=== PATIENT | male | born 1940 | race Caucasian/White ===

== ENCOUNTER → 2016-10-06 | Outpatient (CLI) | payer MEDICARE, OTHER ==
--- NOTE | 2016-10-06 12:37 | US ---
EXAM DESCRIPTION: Aorta CLINICAL HISTORY: 76 years Male, follow-up aortic aneurysm COMPARISON: April 10, 2016 TECHNIQUE: Aortic ultrasound FINDINGS: Abdominal aortic aneurysm is present measuring maximum of 5.9 cm in the distal abdominal aorta. Mid abdominal aorta measures maximum 5.5 cm. Proximal abdominal aorta measures a maximum of 2.9 cm. This compares to previous on which study the maximum diameter is reported as 5.0 cm. Current study shows right iliac 2.8 cm and left iliac 1.4 cm. IMPRESSION: 1. Slight increase in size of the abdominal aorta now measuring maximum of 5.9 cm. Per best practice recommendations vascular surgery consultation is recommended. AAA Size: Follow-up Recommendation : 2.6-2.9 cm Every 5 years 3.0-3.4 cm Every 3 years 3.5-3.9 cm Every 1 year 4.0-4.4 cm Every 1 year, vascular consultation recommended 4.5-5.4 cm Every 6 months, vascular consultation recommended >5.5 cm Vascular surgery consultation recommended 1. J Vasc Surg. 2008;50(4 Suppl):S2-49 2. For aortas with maximum diameter of 2.6-2.9 cm meeting the criteria for AAA (>50% of proximal normal segment) Electronically signed by: rUiel Benton MD 10/06/2016 12:37 PM FINAL RAIL [employer]TER
== END | disposition home or self-care (01) ==
LOC: US 10:48
PROVIDERS: ATTEND Internal Medicine Cardiovascular Disease
DX: I71.4 Abdominal aortic aneurysm, without rupture (principal)

== ENCOUNTER → 2016-11-02 | Outpatient (CLI) | payer MEDICARE, OTHER | END | disposition home or self-care (01) | LOC: BFHOS 09:53 | PROVIDERS: ATTEND Family Medicine | DX: I11.0 Hypertensive heart disease with heart failure (principal); I50.9 Heart failure, unspecified; E11.9 Type 2 diabetes mellitus without complications ==

== ENCOUNTER → 2017-06-21 | Outpatient (CLI) | payer MEDICARE, OTHER | END | disposition home or self-care (01) | LOC: BFHH 11:10 | PROVIDERS: ATTEND Internal Medicine Cardiovascular Disease | DX: I10 Essential (primary) hypertension (principal) ==

== ENCOUNTER 2017-11-04 11:26 | Emergency (ER) | payer MEDICARE, OTHER ==
[2017-11-04 11:43] VITALS: TEMP 96.4
[2017-11-04] MEDS ORDERED: SODIUM CHLORIDE 0.9% 250ML 250 ML IVS ONE (11:59)
--- NOTE | 2017-11-04 12:04 | ED.PDOC ---
History of Present Illness - General Chief Complaint: Respiratory Problem Stated Complaint: decreased sats,fell this morning Time Seen by Provider: 11/04/17 11:52 Source: family Exam Limitations: clinical condition Additional Information: HX OBTAINED FROM . PT CANNOT ANSWER. STATES HE FELL OUT OF HIS RECLINER THIS AM. SHE CALLED EMS AND THEY HELPED GET HIM UP. HE REFUSED TO COME TO THE ER AT THAT TIME BUT INSISTED SO HE WAS BROUGHT IN BY EMS. SHE REPORTS WAXING AND WANING MENTAL STATUS OVER PAST WEEK. - History of Present Illness Timing/Duration: unsure Severity: moderate Improving Factors: nothing Worsening Factors: nothing Associated Symptoms: denies symptoms Allergies/Adverse Reactions: Allergies Iodine Allergy (Unknown, Unverified 05/30/13 16:04) Sulfamethoxazole w/Trimethoprim [From Bactrim] Allergy (Verified 11/04/17 11:44) Home Medications: Ambulatory Orders Alprazolam 0.25 mg PO DAILY PRN 09/06/13 Aspirin [Aspirin 81] 81 mg PO AM 09/06/13 Atorvastatin Calcium 20 mg PO BID 09/06/13 Doxazosin Mesylate 8 mg PO AM 09/06/13 Echinacea 80 mg PO BID 09/06/13 Furosemide 20 mg PO BID 09/06/13 Gabapentin (Phn) [Gralise] 300 mg PO HS 09/06/13 Levothyroxine Sodium [Synthroid] 25 mcg PO AM 09/06/13 Multiple Vitamin [Multivitamins] 1 cap PO AM 09/06/13 Tioga 3 Fatty Acids-Tioga 6 FA [Tioga-3 & Tioga-6 Fish Oi] 1 cap PO BID Potassium Chloride Microencaps [Potassium Chloride Cr] 20 meq PO AM 09/06/13 Nitroglycerin [Nitrostat] 0.4 mg SL .Q5MIN. PRN #0 sub 09/07/13 Albuterol Sulfate 0.083 % IN .Q4HRS PRN 11/04/17 Azithromycin 500 mg PO DAILY 11/04/17 Benzonatate Perles [Tessalon Perles] 1 - 2 mg PO Q8H PRN 11/04/17 Levalbuterol HCl 0.63 mg IN Q6H PRN 11/04/17 Meloxicam 15 mg PO DAILY 11/04/17 Misc Natural Products [Tart Raymond Advanced] 1 cap PO BID 11/04/17 Nitroglycerin [Nitroglycerin Transdermal] 0.4 mg TD DAILY 11/04/17 Prednisone [Deltasone] 20 mg PO BID 11/04/17 Sotalol HCl 120 mg PO BID 11/04/17 Review of Systems - Review of Systems Constitutional: Denies: chills, fever EENTM: States: no symptoms reported Respiratory: States: cough, other - TELEPHONE SERVICE ADVISER Cardiology: Denies: chest pain, palpitations, syncope Gastrointestinal/Abdominal: Denies: diarrhea, nausea, vomiting Genitourinary: States: no symptoms reported Musculoskeletal: Denies: joint pain, neck pain Skin: States: no symptoms reported Neurological: States: weakness - GENERALIZED, NO FOCAL DEFICITS. , other - SOMNOLENCE Endocrine: States: no symptoms reported Hematologic/Lymphatic: States: no symptoms reported Past Medical History (General) - Patient Medical History Hx Seizures: No Hx Stroke: No Hx Asthma: No Hx of COPD: No Hx Cardiac Disorders: Yes - AR x2 Hx Congestive Heart Failure: Yes Hx Pacemaker: Yes Hx Hypertension: Yes Hx Diabetes: Yes Hx MRSA: No Surgical History: pacemaker - Vaccination History Hx Influenza Vaccination: Yes Hx Pneumococcal Vaccination: Yes - Social History Hx Tobacco Use: Yes Hx Alcohol Use: No Hx Substance Use: No Hx Physical Abuse: No Hx Emotional Abuse: No Family Medical History - Family History Father Family History: Unknown Living Status: Unknown Physical Exam - Physical Exam General Appearance: No apparent distress, Other - SOMNOLENT. AROUSES SOMEWHAT TO VERBAL STIMULI IS ABLE TO FOLLOW COMMANDS. Ears, Nose, Throat: hearing grossly normal, normal ENT inspection Neck: non-tender, full range of motion Respiratory: lungs clear, normal breath sounds, other - SATS 86% RA, (HYPOXIC) Cardiovascular/Chest: regular rate, rhythm, no edema Gastrointestinal/Abdominal: normal bowel sounds, non tender, no organomegaly Rectal Exam: normal exam Back Exam: normal inspection Extremity: normal range of motion Neurologic: no motor/sensory deficits, alert, normal mood/affect Skin Exam: normal color Lymphatic: no adenopathy Progress - Progress Progress: 11/04/17 13:39 VSS, NO CHANGE IN MS. 11/04/17 15:10 ABG SHOWS, RESP ACIDOSIS WITH MOD-SEVERE HYPERCAPNEA. 11/04/17 17:31 ABG HAS NOT IMPROVED, HAVE DISCUSSED WITH FAMILY WILL INTUBATE AND TRANSFER. 11/04/17 19:14 INTUBATED, AND CENTRAL LINE PLACED. VSS TRANSFER TO [facility]. FLIGHT CREW HERE. - EKG/XRAY/CT EKG: nonspecific ST T wave Chg - NAIP Comments: AV SEQUENTIAL PACEMAKER, RATE 70, NL AXIS, NL NC INTERVAL XRAY: chest - PHILIPPE LL INFILTRATES, L>R, CXR #2, NO PTX, APPROPRIATELY PLACED ETT. PERFORMED POST CENTRAL LINE ATTEMPT. CT Ordered: Yes - CT HEAD, ALBERT Procedures - Central Line Right Femoral vein Central Line Lumen: triple Anesthesia: local Complications: none Central Line Post Position: sutured, good blood return Progress: IJ L AND R UNSUCCESSFUL COULD NOT THREAD GUIDE WIRE. R FEMORAL VEIN CANNULATED WITH US ASSISTANCE. - Ultrasound Progress: R FEMORAL VEIN VISUALIZED FOR CENTRAL LINE PLACEMENT. CROSS SECTION, HIGH FREQUENCY LINEAR PROBE. INTERP APPROPRIATELY PLACED CENTRAL LINE. - Intubation Time of Intubation: 18:15 - ETOMIDATE FOR SEDATION Intubation Method: orotracheal Tube Size (cm): 8.0 Medications: Succinylcholine Breath Sounds after Intubation: right greater than left Intubation Complications: no complications Post Intubation Xray: Yes - GOOD TUBE PLACEMENT, LLL INFILTRATE - Additional Procedures Additional Procedures: arterial blood draw - R FEMORAL VEIN CANNULATION FOR BLOOD AND BLOOD DRAW. Departure - Departure Clinical Impression: Respiratory acidosis, Altered sensorium Pneumonia Qualifiers: Pneumonia type: due to unspecified organism Laterality: bilateral Lung location : lower lobe of lung Qualified Code(s): J18.9 - Pneumonia, unspecified organism Respiratory failure Qualifiers: Chronicity: acute Respiratory failure complication: hypoxia and hypercapnia Qualified Code(s): J96.01 - Acute respiratory failure with hypoxia; J96.02 - Acute respiratory failure with hypercapnia Hypertension Qualifiers: Hypertension type: essential hypertension Qualified Code(s): I10 - Essential ( primary) hypertension Time of Disposition: 19:27 - ACCEPTED AT [facility] Disposition: Transfer to Hospital Condition: Serious Departure Forms: ED Discharge - Pt. Copy, Patient Portal Self Enrollment Referrals: COBY ARMSTRONG,MANDY Tomlin [Primary Care Provider] - 1-2 Weeks Home Medications: Ambulatory Orders Alprazolam 0.25 mg PO DAILY PRN 09/06/13 Aspirin [Aspirin 81] 81 mg PO AM 09/06/13 Atorvastatin Calcium 20 mg PO BID 09/06/13 Doxazosin Mesylate 8 mg PO AM 09/06/13 Echinacea 80 mg PO BID 09/06/13 Furosemide 20 mg PO BID 09/06/13 Gabapentin (Phn) [Gralise] 300 mg PO HS 09/06/13 Levothyroxine Sodium [Synthroid] 25 mcg PO AM 09/06/13 Multiple Vitamin [Multivitamins] 1 cap PO AM 09/06/13 Tioga 3 Fatty Acids-Tioga 6 FA [Tioga-3 & Tioga-6 Fish Oi] 1 cap PO BID Potassium Chloride Microencaps [Potassium Chloride Cr] 20 meq PO AM 09/06/13 Nitroglycerin [Nitrostat] 0.4 mg SL .Q5MIN. PRN #0 sub 09/07/13 Albuterol Sulfate 0.083 % IN .Q4HRS PRN 11/04/17 Azithromycin 500 mg PO DAILY 11/04/17 Benzonatate Perles [Tessalon Perles] 1 - 2 mg PO Q8H PRN 11/04/17 Levalbuterol HCl 0.63 mg IN Q6H PRN 11/04/17 Meloxicam 15 mg PO DAILY 11/04/17 Misc Natural Products [Tart Raymond Advanced] 1 cap PO BID 11/04/17 Nitroglycerin [Nitroglycerin Transdermal] 0.4 mg TD DAILY 11/04/17 Prednisone [Deltasone] 20 mg PO BID 11/04/17 Sotalol HCl 120 mg PO BID 11/04/17 Critical Care Note - Critical Care Note Total Time (mins): 155 Comments: EVENT: IMPENDING RESP FAILURE, PNEUMONIA FINDINGS, AMS, PH 7.13, PCO2 113, UNRESPONSIVE TO CPAP. LLL INFILTRATE INTERVENTION: INTUBATION, IV ABX, TRANSFER TO [facility] [place]. TIME: DIRECT PT CARE-55 MIN, LAB/XRAY-20 MIN, FAMILY INTERACTION 20 MIN, DOCUMENTATION 40 MIN, CONSULTATION 20 MIN RESP/CARDIOVASC AT RISK. Transfer to Outside Facility - Transfer Information Accepting Provider:: D/W HOSPITALIST AND FIXING CARPENTER Accepting Facility: [facility] Reason for Transfer: ICU
--- NOTE | 2017-11-04 12:28 | RAD ---
Study: Single Frontal View of the Chest. Indication:AMS Comparison: September 07. Impression: Cardiac pacemaker. Cardiomegaly with mild interstitial edema. Patchy moderate consolidation in the left lung base with mild changes at the right lung base concerning for pneumonia. Small left and tiny right pleural effusions. No pneumothorax. Electronically signed by: Isidro Hwang MD 11/04/2017 12:27 PM CDT
--- NOTE | 2017-11-04 12:30 | CT ---
Study: CT of the Head. Indication: AMS Technique: Axial CT images of the head were acquired without intravenous contrast. This exam was performed according to our departmental dose-optimization program, which includes automated exposure control, adjustment of the mA and/or kV according to patient size and/or use of iterative reconstruction technique. Comparison: None. Findings: Examination is moderately motion degraded. No CT evidence of acute ischemia, acute hemorrhage, mass, mass effect, midline shift, or extra-axial fluid collection. Ventricles are normal in configuration without hydrocephalus. Patchy hypoattenuation of the periventricular and subcortical white matter noted. This is nonspecific but most consistent with chronic microvascular ischemic change. Global parenchymal volume loss and intracranial atherosclerosis noted as well. Paranasal sinuses are adequately aerated. Mastoid air cells are adequately aerated. Osseous structures and soft tissues are unremarkable. Impression: 1. Moderately motion degraded examination without gross CT evidence of acute intracranial abnormality. 2. Senescent changes. Electronically signed by: Isidro Hwang MD 11/04/2017 12:28 PM CDT
[2017-11-04] MEDS ORDERED: CHLORHEXIDINE GLUCONATE 4 % 15 ML UD TOP ONE (13:08)
[2017-11-04] MEDS ORDERED: cefTRIAXone SODIUM 1 GM in SODIUM CHL 0.9% 50ML MIN-BAG+ 50 ML IVPB ONE (15:38)
[2017-11-04] MEDS ORDERED: AZITHROMYCIN IV 500 MG in SODIUM CHLORIDE 0.9% 250ML 250 ML IVPB ONE (15:38)
[2017-11-04] MEDS ORDERED: CLINDAMYCIN IV 900MG 900 MG in PREMIX BAG 1 BAG IVPB ONE (15:38)
[2017-11-04] MEDS ORDERED: SODIUM CHLORIDE 0.9% 1000ML 1,000 ML IVS ONE (15:43)
[2017-11-04] MEDS ORDERED: SODIUM CHL 0.9% 50ML MIN-BAG+ 50 ML IVPB ONE (15:52)
[2017-11-04] MEDS ORDERED: cefTRIAXone SODIUM 1 GM VIAL ONE (15:52)
[2017-11-04] MEDS ORDERED: SODIUM CHLORIDE 0.9% 250ML 250 ML ONE (17:00)
[2017-11-04] MEDS ORDERED: AZITHROMYCIN IV 500 MG VIAL IVPB ONE (17:00)
[2017-11-04] MEDS ORDERED: CLINDAMYCIN IV 900MG 50 ML IVPB ONE (17:00)
[2017-11-04] MEDS ORDERED: ETOMIDATE INJECTION 2 MG/ML 20ML VIAL IV ONE ×2 (17:00→18:17)
[2017-11-04] MEDS ORDERED: SUCCINYLCHOLINE CHLORIDE 200 MG/10 ML VIAL ONE (17:29)
[2017-11-04] MEDS ORDERED: SUCCINYLCHOLINE CHLORIDE 200 MG/10 ML VIAL IV ONE (18:17)
[2017-11-04] MEDS ORDERED: NOREPINEPHRINE BITARTRATE 4 MG/4 ML VIAL IVPB ONE (18:39)
[2017-11-04] MEDS ORDERED: DEXTROSE 5% 250ML 250 ML ONE (18:40)
--- NOTE | 2017-11-04 18:41 | RAD ---
EXAM DESCRIPTION: Chest,1 View CLINICAL HISTORY: S/P INTUBATION COMPARISON: 11/04/2017 at 1219 hours FINDINGS: ET tube tip is at T3. Electronic cardiac device and leads are again seen. There is atelectasis at each lung base. This is improving. Consolidation is improving at the left lung base.. Cardiac silhouette is unchanged. IMPRESSION: Improving consolidation at the left lung base. Electronically signed by: Inder Proctor 11/04/2017 6:39 PM CDT
[2017-11-04] MEDS ORDERED: NOREPINEPHRINE BITARTRATE 4 MG in DEXTROSE 5% 250ML 250 ML IVPB ONE (18:45)
[2017-11-04 19:30] VITALS: BP 133/99; O2SAT 99
== END 2017-11-04 19:30 | disposition short-term general hospital (02) ==
LOC: ER 11:26
DX: J18.9 Pneumonia, unspecified organism (principal); J96.02 Acute respiratory failure with hypercapnia; J96.01 Acute respiratory failure with hypoxia; E87.2 Acidosis; R41.82 Altered mental status, unspecified; I25.2 Old myocardial infarction; I11.0 Hypertensive heart disease with heart failure; I50.9 Heart failure, unspecified; Z95.0 Presence of cardiac pacemaker; E11.9 Type 2 diabetes mellitus without complications; Z79.82 Long term (current) use of aspirin